=== PATIENT | female | born 1975 | race Caucasian/White ===

== ENCOUNTER 2017-08-27 15:59 | Emergency (ER) | END 2017-08-27 20:12 | disposition home or self-care (01) ==

== ENCOUNTER 2018-12-25 08:39 | Emergency (ER) | payer SELFPAY ==
[~2018-12-25] VITALS: Ht 160 cm; Wt 78.5 kg
[~2018-12-25 08:39] MED LIST: ACYC800T5 PO; DOCO2CRE3 TOP
[2018-12-25 08:41] VITALS: BP 144/77; PULSE 57; RESP 18; Ht 160 cm; Wt 78.5 kg
[2018-12-25] MEDS ORDERED: CARB-155 BOTH EARS (12:41)
--- NOTE | 2018-12-25 12:49 | ERD ---
ER Documentation Chief Complaint Chief Complaint bilateral ear pain x3 days HPI 43-year-old female patient with a past medical history of diabetes presents the ED complaining of ear pain that started about 3 days ago. Reports that she is tried to use Q-tips to clean her ears, however feels like she has some bilateral hearing loss due to impacted cerumen. Denies any fever, chills, nausea, vomiting, cough, rhinorrhea. Denies any recent swimming. ROS All systems reviewed and are negative except as per history of present illness. Medications Home Meds Active Scripts Carbamide Peroxide* (Debrox*) 6.5% -15 Ml Drops, 10 DROP BOTH EARS BID, #1 EA Prov:NAHUM RODRIGUEZ PA-C 12/25/18 Acyclovir* (Zovirax*) 800 Mg Tablet, 800 MG PO 5 TIMES DAILY for 7 Days, TAB Prov:CYNDI,AISHWARYA C 08/27/17 Docosanol (Abreva) 2 Gm Cream.gm., 1 APPLIC TOP 5 TIMES DAILY, #1 TUB Prov:CYNDI,AISHWARYA C 08/27/17 Allergies Allergies: Coded Allergies: No Known Allergy (Unverified , 12/25/18) PMhx/Soc Medical and Surgical Hx: pt denies Surgical Hx Hx Alcohol Use: No Hx Substance Use: No Hx Tobacco Use: No Smoking Status: Never smoker FmHx Family History: No diabetes, No coronary disease Physical Exam Vitals Vital Signs Date Temp Pulse Resp B/P (MAP) Pulse Ox O2 O2 Flow FiO2 Time Delivery Rate 12/25/18 97.9 57 18 144/77 100 08:41 (99) Physical Exam Const: Pou-rth-ozxzjknlt, well-nourished. In no acute distress. Head: Atraumatic, normocephalic Eyes: Normal Conjunctiva without injection. No purulent discharge. PERRL. EOMI ENT: Normal external ear. Impacted bilateral ear canals with brown cerumen noted. No tenderness palpation of the tragus or mastoid. Nasal canal clear with normal turbinates. Moist oropharynx without tonsillar exudates. Non-erythematous pharynx. Uvula midline. No drooling. No trismus. Neck: Full range of motion. No meningismus. No cervical lymphadenopathy. Resp: Clear to auscultation bilaterally. No wheezing, rhonchi, rales, or crackles. No accessory muscle use. No retractions. Cardio: Regular rate and rhythm. No murmurs, rubs or gallops. Abd: Soft, non tender, non distended. Normal bowel sounds. No palpable masses. No rebound tenderness. No guarding. Skin: No petechiae or rashes Back: No midline tenderness. No CVA tenderness. Ext: No cyanosis, or edema. Neur: Awake and alert. Psych: Normal Mood and Affect Procedures/MDM 43-year-old female patient with past medical history of diabetes presents the ED complaining of bilateral ear pain that started 3 days ago due to cerumen impaction. Patient is afebrile and nontoxic-appearing. Normal saline was used to irrigate the bilateral elbows without any difficulty with patient's consent. Curette was used to remove any residual cerumen with success. Patient tolerated procedure. Patient denied any dizziness, headache. States that she has instead hearing improvement. Patient had no erythema, purulent discharge noted. No bulging TM. TMs pearly wu. Patient is speaking in full sentences. There is a low suspicion for tympanic membrane rupture, pneumonia, epiglottitis, croup, viral/strep pharyngitis, sinusitis, peritonsillar abscess, retropharyngeal abscess, meningitis, sepsis, acute abdomen or other emergent conditions. Diagnosis: Cerumen impaction Discharge medications: Debrox Follow up with primary care physician in 1-2 days. Instructed patient to return to the ED sooner for any worsening symptoms. Patient's questions were answered. Patient is hemodynamically stable. Patient understood and agreed with discharge plan. Patient discharged stable. Disclaimer: Inadvertent spelling and grammatical errors are likely due to EHR/dictation software use and do not reflect on the overall quality of patient care. Also, please note that the electronic time recorded on this note does not necessarily reflect the actual time of the patient encounter. Departure Diagnosis: Primary Impression: Cerumen impaction Laterality: bilateral Qualified Codes: H61.23 - Impacted cerumen, bilateral Condition: Stable Patient Instructions: Cerumen Impaction, Home Care [facility] Usted se rea hecho un examen mdico de control que le indica que no est en alexandra condicin que requiera tratamiento urgente en el Departamento de Emergencia. Un estudio ms profundo y el tratamiento de freeman condicin pueden esperar sin ningn riesgo hasta que usted sea atendida/o en el consultorio de freeman mdico o alexandra clnica. Es responsabilidad suya arreglar alexandra margaux para el seguimiento del elizabeth. MANEJO DE CONDICIONES NO URGENTES EN EL FUTURO 1) Si usted tiene un mdico de atencin primaria: Usted debera llamar a freeman mdico de atencin primaria antes de venir al departamento de emergencia. Despus de las horas de consultorio, freeman doctor o freeman asociado/a est disponible por telfono. El mdico o enfermero de estelita en el servicio telefnico puede asesorarle por janina medio para atender el problema, o elizabeth contrario se puede programar alexandra margaux. 2) Si usted no tiene un mdico de atencin primaria: Llame al mdico o clnica de referencia que aparece abajo tyra las horas de consultorio para hacer alexandra margaux para que le vean. CLINICAS: [facility] [phone] [address] [facility] [facility] [phone] [address] [facility] [facility] [phone] [address] [facility]. [facility] [phone] [facility]. [place] [id number] [phone] [facility]. [phone] [facility] () Usted se rea hecho un examen mdico de control que le indica que no est en alexandra condicin que requiera tratamiento urgente en el Departamento de Emergencia. Un estudio ms profundo y el tratamiento de freeman condicin pueden esperar sin ningn riesgo hasta que usted sea atendida/o en el consultorio de freeman mdico o alexandra clnica. Es responsabilidad suya arreglar alexandra margaux para el seguimiento del elizabeth. MANEJO DE CONDICIONES NO URGENTES EN EL FUTURO 1) Si usted tiene un mdico de atencin primaria: Usted debera llamar a freeman mdico de atencin primaria antes de venir al departamento de emergencia. Despus de las horas de consultorio, freeman doctor o freeman asociado/a est disponible por telfono. El mdico o enfermero de estelita en el servicio telefnico puede asesorarle por janina medio para atender el problema, o elizabeth contrario se puede programar alexandra margaux. 2) Si usted no tiene un mdico de atencin primaria: Llame al mdico o condado institucions de referencia que aparece abajo tyra las horas de consultorio para hacer alexandra margaux para que le vean. SI USTED NO PUEDE PAGAR PARA ERICA UN MEDICO puede ir a: [facility] [id number] [place] [address] [facility] [address] [place] [address] [facility] [address] [place] [address] [facility] [address] [place], [place] [phone] Additional Instructions: Llame al doctor MAANA y rao alexandra MARGAUX PARA DENTRO DE 2-3 KELLY.Dgale a la secretaria que nosotros le instruimos hacer esta margaux.Avise o llame si freeman condicin se empeora antes de la margaux. Regresa aqui si peor o no mejor. NAHUM RODRIGUEZ PA-C Dec 25, 2018 12:49
== END 2018-12-25 13:02 | disposition home or self-care (01) ==
LOC: FTE 08:39
DX: H61.23 Impacted cerumen, bilateral (principal); E11.9 Type 2 diabetes mellitus without complications